=== PATIENT | male | born 1955 | race Caucasian/White ===

== ENCOUNTER 2018-10-09 13:21 | Inpatient (IN) | payer BC, OTHER ==
[2018-10-09] MEDS ORDERED: ONDANSETRON 4 MG/2 ML VIAL IVPB ONE (14:29)
[2018-10-09] MEDS ORDERED: SODIUM CHLORIDE 1,000 ML IV STA (14:30)
[2018-10-09] MEDS ORDERED: morphine CARPU-JECT 4 MG/1 ML DISP.SYRIN IVPUSH ONE (14:31)
--- NOTE | 2018-10-09 14:31 | PDOC ---
History of Present Illness - General Chief Complaint: Pain Stated Complaint: ABD PAIN History Source: Patient Exam Limitations: No Limitations - History of Present Illness Travel History: No Initial Comments: 10/09/18 15:22 This is a 63 year old male with a history of alcohol and substance abuse and sarcoidosis, on advair, who presents with non bloody, green billious vomiting, > 30x since early this morning around 1:30am with accompanied severe, non radiating, sharp mid epigastric pain . Patient states he ate one day old pork and rice. No one else in family ate. Denies fever, chills, diarrhea, dysphagia, night sweats, chest pain, shortness of breath, palpitations, leg swelling. Patient endorses drinking 2-4 ounces of alcohol yesterday. States he drinks 3-4 times per week. Denies drug use/smoking. States he has been "fighting off a cold". PMH: keith, on advair, has not followed up with pulm, has not had breathing difficulty PSHx: none Social: hx of drinking, currently drinks 3-4 x per week; denies current drug use ; is a retired teacher Allergies: nkda Past History - Past Medical History Allergies/Adverse Reactions: Allergies Allergy/AdvReac Type Severity Reaction Status Date / Time No Known Allergies Allergy Verified 10/09/18 13:24 Home Medications: Ambulatory Orders Salmeterol/Fluticasone [Advair 100Mcg/50Mcg -] 1 puff IN BID 10/09/18 COPD: No Other medical history: Sarcoidois - Suicide/Smoking/Psychosocial Hx Smoking History: Never smoked Have you smoked in the past 12 months: No Information on smoking cessation initiated: No Hx Alcohol Use: No Drug/Substance Use Hx: No Substance Use Type: Alcohol Review of Systems - Review of Systems Able to Perform ROS?: Yes Constitutional: Yes: Loss of Appetite. No: Chills, Diaphoresis, Fever, Night Sweats, Weakness, Weight Stable, Unintentional Wgt. Loss HEENTM: No: Nose Congestion, Throat Pain, Throat Swelling, Difficulty Swallowing , Mouth Swelling Respiratory: No: Cough, Orthopnea, Shortness of Breath Cardiac (ROS): No: Chest Pain, Irregular Heart Rate, Lightheadedness, Palpitations, Syncope ABD/GI: Yes: Nausea, Poor Fluid Intake, Vomiting, Abdominal cramping. No: Abdominal Distended, Blood Streaked Bowels, Diarrhea, Difficulty Swallowing : No: Burning, Dysuria, Discharge, Hematuria Musculoskeletal: No: Back Pain Integumentary: No: Bruising, Erythema, Lesions Neurological: No: Headache, Numbness, Seizure, Tingling Endocrine: No: Excessive Sweating Hematologic/Lymphatic: No: Anemia *Physical Exam - Vital Signs Last Vital Signs Temp Pulse Resp BP Pulse Ox 97.3 F L 86 20 111/73 100 10/09/18 13:24 10/09/18 13:24 10/09/18 13:24 10/09/18 13:24 10/09/18 13:24 - Physical Exam General Appearance: Yes: Appropriately Dressed HEENT: positive: Pharynx Normal Neck: negative: Lymphadenopathy (R), Lymphadenopathy (L) Respiratory/Chest: positive: Crackles (mild RLL crakles; cleared with coughing) . negative: Chest Tender, Respiratory Distress, Accessory Muscle Use Cardiovascular: positive: Regular Rhythm, Regular Rate, S1, S2. negative: Bradycardia, Tachycardia Gastrointestinal/Abdominal: positive: Tender (mid epigastium pain with palpation ), Decreased BS. negative: Organomegaly, Pulsatile Mass, Distended, Guarding Musculoskeletal: positive: Normal Inspection. negative: CVA Tenderness Extremity: positive: Normal Inspection, Normal Range of Motion Integumentary: positive: Normal Color Neurologic: positive: Alert, Normal Mood/Affect ED Treatment Course - LABORATORY CBC & Chemistry Diagram: 10/09/18 15:12 10/09/18 15:12 Medical Decision Making - Medical Decision Making 10/09/18 16:01 This is a 63 year old male with a history of sarcoidosis, alchohol use, hx of substance abuse, who presents with intractable billious vomiting x1 day. R/o out acute abdominal/intestinal pathology. #n/v/abdominal pain: -cbc, cmp, mg, lipase, ua -IVF -IV protonix -IV zofran -ecg to eval for acs -abdominal/pelvis CT with IV contrast 10/09/18 17:53 -CT abdomen consistent with small bowel obstruction with moderate gastric fluid levels. -keep NPO -place NGT 10/09/18 18:06 -surgery consulted -admit to hospital *DC/Admit/Observation/Transfer Diagnosis at time of Disposition: Left before treatment completed - Discharge Dispostion Condition at time of disposition: Fair Decision to Admit order: Yes - Referrals - Patient Instructions - Post Discharge Activity
[2018-10-09] MEDS ORDERED: morphine SULFATE 4 MG/ML VIAL ONE (14:47)
[2018-10-09] MEDS ORDERED: ONDANSETRON 4 MG/2 ML VIAL ONE (14:47)
[2018-10-09 15:39] LABS: BASO % 0.3 % (0-2.0); EOS % 0.1 % (0-4.5); HEMATOCRIT 46.7 % (35.4-49); HEMOGLOBIN 15.9 GM/dL (11.7-16.9); LYMPH % 2.3 % (8-40); MEAN CELL VOLUME 85.3 fl (80-96); MEAN PLT VOLUME 10.5 fl (7.5-11.1); MONO % 3.7 % (3.8-10.2); NEUT % 93.6 % (42.8-82.8); PLATELET COUNT 184 K/MM3 (134-434); RBC 5.47 M/mm3 (4.00-5.60); RDW 13.1 % (11.9-15.9); WHITE BLOOD COUNT 11.8 K/mm3 (4.0-10.0)
[2018-10-09] MEDS ORDERED: PANTOPRAZOLE SODIUM 40 MG VIAL IVPUSH ONE (16:00)
[2018-10-09] MEDS ORDERED: PANTOPRAZOLE SODIUM 40 MG/100 ML BAG IVPB ONE (16:15)
[2018-10-09 16:18] LABS: ALBUMIN 4.1 g/dl (3.4-5.0); ALK PHOS 73 U/L (45-117); ANION GAP 12 MMOL/L (8-16); BLOOD UREA NITROGEN 18 mg/dL (7-18); CALCIUM 9.3 mg/dL (8.5-10.1); CHLORIDE 93 mmol/L (98-107); CO2 33 mmol/L (21-32); CREATININE 1.3 mg/dL (0.55-1.3); GLUCOSE,RANDOM 116 mg/dL (74-106); LIPASE 96 U/L (73-393); MAGNESIUM 2.1 mg/dL (1.8-2.4); POTASSIUM 4.1 mmol/L (3.5-5.1); SGOT/AST 29 U/L (15-37); SGPT/ALT 32 U/L (13-61); SODIUM 138 mmol/L (136-145); TOT PROT 7.3 g/dl (6.4-8.2)
--- NOTE | 2018-10-09 16:27 | PDOC ---
Attending Attestation - Resident Resident Name: SonuprernaChrista - ED Attending Attestation I have performed the following: I have examined & evaluated the patient, The case was reviewed & discussed with the resident, I agree w/resident's findings & plan, Exceptions are as noted - HPI HPI: 10/09/18 16:21 This patient is a 63yo M with PMHx of Sarcoidosis (on advair daily) EtOH abuse who presents with 1 day of nausea, green bilious vomiting, and epigastric abdominal pain. Patient states that since 1:30 am this morning he vomited 30 times which he describes as bright green colored and non-bloody. He also reports midepigastric abdominal pain that radiates to RUQ and LUQ. He rates the abdominal pain as 10/10. He states that prior to vomiting last night he ate pork that was 1 day old and some rice. Reports a small non bloody BM this morning, but states he normally has a BM every day. He reports that he drinks alcohol 4 days a week, but his reports that he drinks more than that. He states he normally drinks beer and rum. He denies any fever or chills. Denies headache, cp, sob, focal weakness/numbness, LE edema, urinary symptoms. Denies surgery to the abdomen - Physicial Exam PE: 10/09/18 17:13 GENERAL: Awake, alert, and fully oriented, in no acute distress HEAD: No signs of trauma EYES: PERRLA, EOMI, sclera anicteric, conjunctiva clear ENT:Oropharynx clear without exudates. Dry mucosa NECK: Normal ROM, supple, no lymphadenopathy, JVD, or masses LUNGS: Breath sounds equal, clear to auscultation bilaterally. No wheezes, and no crackles HEART: Regular rate and rhythm, normal S1 and S2, no murmurs, rubs or gallops ABDOMEN: Soft, mild epigastric ttp, normoactive bowel sounds. No guarding, no rebound. +mild distention. No masses. No CVAT EXTREMITIES: Normal range of motion, no edema. No cords, erythema, or tenderness NEUROLOGICAL: Normal speech, cranial nerves intact, 5/5 strength in all 4 extremities, normal sensation to light touch in all 4 extremities, normal gait SKIN: Warm, Dry, normal turgor, no rashes or lesions noted. - Medical Decision Making 10/09/18 16:17 63yo M hx etoh abuse presents to the ED with epigastric abd pain a/w multiple episodes of bilious emesis. Pt had BM today but states less than usual. Passing flatus. DDx is wide and includes SBO vs pancreatitis vs UTI vs colitis vs enteritis vs cholecystitis vs gastritis. Plan: -labs -CTAP -UA -reassess 10/09/18 17:23 Labs wnl CTAP done, read pending Pt stable 10/09/18 18:02 CTAP with SBO surgery will be called pt to be admitted 10/09/18 18:[address] Pagan by Dr. Dykes Waiting call back from admitting team 10/09/18 18:[address] Mccullough by Dr. Dykes Case discussed in detail with admitting physician including history, physical exam and ancillary studies. Admitting physician has assumed care for the patient, will follow all pending diagnostics and will complete the evaluation and treatment. *DC/Admit/Observation/Transfer Diagnosis at time of Disposition: SBO (small bowel obstruction), Vomiting bile, Nausea - Discharge Dispostion Condition at time of disposition: Fair - Referrals - Patient Instructions - Post Discharge Activity - Attestations Physician Attestion: 10/09/18 18:45 I, Dr. Socrates Teague MD, attest that this document has been prepared under my direction and personally reviewed by me in its entirety. I further attest, that it accurately reflects all work, treatment, procedures and medical decision -making performed by me. Heart Score/ECG Review #1 10/09/18 17:17 Twelve-lead EKG was performed and reviewed by me. Normal sinus rhythm, rate 93. Right bundle branch block with left anterior fascicular block.
[2018-10-09] MEDS ORDERED: LIDOCAINE VISCOUS 2% ORAL/TOP 20 ML UNIT-DOSE CUP ONE (18:19)
[2018-10-09 18:55] LABS: PLATELET ESTIMATE ADEQUATE
--- NOTE | 2018-10-09 20:23 | HP ---
Admitting History and Physical - Primary Care Physician PCP: Morris Mccullough - Admission Chief Complaint: vomitting History of Present Illness: 63 year old male with a history of alcohol and substance abuse and sarcoidosis, who presents with non bloody, green billious vomiting, >30x since early this morning around 1:30am with accompanied severe, non radiating, sharp mid epigastric pain . Patient states he ate one day old pork and rice. No one else in family ate. Denies fever, chills, diarrhea, dysphagia, night sweats, chest pain, shortness of breath, palpitations, leg swelling. Patient endorses drinking 2-4 ounces of alcohol yesterday. States he drinks 3-4 times per week. Denies drug use/smoking. - Smoking History Smoking history: Never smoked Have you smoked in the past 12 months: No - Alcohol/Substance Use Hx Alcohol Use: No Home Medications - Allergies Allergies/Adverse Reactions: Allergies Allergy/AdvReac Type Severity Reaction Status Date / Time No Known Allergies Allergy Verified 10/09/18 13:24 - Home Medications Home Medications: Ambulatory Orders Salmeterol/Fluticasone [Advair 100Mcg/50Mcg -] 1 puff IN BID 10/09/18 Physical Examination Vital Signs: Vital Signs Temperature 97.3 F L 10/09/18 13:24 Pulse Rate 86 10/09/18 13:24 Respiratory Rate 20 10/09/18 13:24 Blood Pressure 111/73 10/09/18 13:24 O2 Sat by Pulse Oximetry (%) 100 10/09/18 13:24 HENT: Yes: Atraumatic Neck: Yes: Supple Cardiovascular: Yes: Regular Rate and Rhythm Respiratory: Yes: CTA Bilaterally Gastrointestinal: Yes: Normal Bowel Sounds Extremities: Yes: WNL Edema: No Peripheral Pulses WNL: Yes Neurological: Yes: Alert, Oriented Labs: CBC, BMP 10/09/18 15:12 10/09/18 15:12 Problem List - Problems (1) Nausea Assessment/Plan: prn zofran Code(s): R11.0 - NAUSEA (2) SBO (small bowel obstruction) Assessment/Plan: npo, ngt ivf Code(s): K56.609 - UNSP INTESTNL OBST, UNSP TO PARTIAL VERSUS COMPLETE OBST (3) Vomiting bile Code(s): R11.14 - BILIOUS VOMITING Assessment/Plan Laboratory Tests 10/09/18 10/09/18 15:12 15:12 WBC 11.8 H RBC 5.47 Hgb 15.9 Hct 46.7 MCV 85.3 MCH 29.0 MCHC 34.0 RDW 13.1 Plt Count 184 MPV 10.5 Absolute Neuts (auto) 11.0 H Neutrophils % 93.6 H Neutrophils % (Manual) 89.0 H Band Neutrophils % 5.0 Lymphocytes % 2.3 L Lymphocytes % (Manual) 3.0 L Monocytes % 3.7 L Monocytes % (Manual) 3 L Eosinophils % 0.1 Basophils % 0.3 Nucleated RBC % 0 Platelet Estimate Adequate Platelet Comment No clumping noted Sodium 138 Potassium 4.1 Chloride 93 L Carbon Dioxide 33 H Anion Gap 12 BUN 18 Creatinine 1.3 Creat Clearance w eGFR 55.58 Random Glucose 116 H Calcium 9.3 Magnesium 2.1 Total Bilirubin 1.0 AST 29 ALT 32 Alkaline Phosphatase 73 Total Protein 7.3 Albumin 4.1 Lipase 96 Alcohol, Quantitative < 3.0 Active Medications Generic Name Dose Route Start Last Admin Trade Name Freq PRN Reason Stop Dose Admin Morphine Sulfate 3 mg 10/09/18 20:25 10/11/18 16:41 Morphine Sulfate IVPUSH 3 mg Q4H PRN Administration PAIN LEVEL 4 - 6 Pantoprazole Sodium 40 mg 10/09/18 20:26 10/11/18 11:00 Protonix Iv IVPUSH 40 mg DAILY EDUARDO Administration
[2018-10-09] MEDS: PANTOPRAZOLE SODIUM 40 MG VIAL IVPUSH SCH (20:57)
[2018-10-09 22:52] LABS: COCAINE, UR NEGATIVE ng/ml (CUTOFF=300); METHADONE, UR NEGATIVE ng/ml (CUTOFF=300); PHENCYCLIDINE,URINE NEGATIVE ng/ml (CUTOFF=25); URINE AMPHETAMINES NEGATIVE ng/ml (CUTOFF=500); URINE BARBITURATES NEGATIVE ng/ml (CUTOFF=200); URINE BENZODIAZEPINES NEGATIVE ng/ml (CUTOFF=200)
[2018-10-09 22:53] LABS: OPIATES, URI POSITIVE ng/ml (CUTOFF=300)
[2018-10-09 23:02] LABS: URINE APPEARANCE CLEAR; URINE BILIRUBIN NEGATIVE (<2.0 mg/dL); URINE COLOR YELLOW; URINE GLUCOSE (UA) NEGATIVE (NEGATIVE); URINE KETONE 2+ (NEGATIVE); URINE LEUK ESTERASE NEGATIVE (NEGATIVE); URINE NITRITE NEGATIVE (NEGATIVE); URINE PROTEIN 1+ (NEGATIVE); URINE UROBILINOGEN NEGATIVE mg/dL (0.2-1.0)
[2018-10-09 23:07] LABS: EPI CELLS RARE /HPF (FEW); URINE BACTERIA RARE /hpf (NONE SEEN); URINE MUCUS RARE
[2018-10-09 23:47] VITALS: BMI 22.4
[2018-10-10] MEDS: morphine SULFATE 4 MG/ML VIAL IVPUSH PRN (06:43)
[2018-10-10 08:04] LABS: BASO % 0.2 % (0-2.0); EOS % 0.2 % (0-4.5); HEMATOCRIT 44.8 % (35.4-49); HEMOGLOBIN 14.8 GM/dL (11.7-16.9); MCH 28.5 pg (25.7-33.7); MEAN CELL VOLUME 86.3 fl (80-96); MONO % 7.1 % (3.8-10.2); NEUT % 84.5 % (42.8-82.8); PLATELET COUNT 163 K/MM3 (134-434); RBC 5.19 M/mm3 (4.00-5.60); RDW 13.3 % (11.9-15.9); WHITE BLOOD COUNT 9.5 K/mm3 (4.0-10.0)
[2018-10-10 08:15] LABS: ALBUMIN 3.4 g/dl (3.4-5.0); ALK PHOS 57 U/L (45-117); ANION GAP 8 MMOL/L (8-16); BLOOD UREA NITROGEN 27 mg/dL (7-18); CALCIUM 8.5 mg/dL (8.5-10.1); CHLORIDE 99 mmol/L (98-107); CO2 34 mmol/L (21-32); CREATININE 1.4 mg/dL (0.55-1.3); GLUCOSE,RANDOM 96 mg/dL (74-106); POTASSIUM 3.8 mmol/L (3.5-5.1); SGOT/AST 21 U/L (15-37); SGPT/ALT 23 U/L (13-61); SODIUM 141 mmol/L (136-145)
[2018-10-10] MEDS: PANTOPRAZOLE SODIUM 40 MG VIAL IVPUSH SCH (09:12)
--- NOTE | 2018-10-10 10:55 | PN ---
Progress Note (short form) - Note Progress Note: Surgery pt seen and examined. full consult dictated. 63m with virgin abd, history of pulmonary sarcoid, presents with bilious vomiting after eating spoiled pork while drunk. Ct without oral contrast shows possible mechanical sbo. Ngt with minimal output. Pt without pain and labs now norrmal. afebrile abd- soft, nt Plan- clinically enteritis. Cannot r/o mechanical sbo from sarcoid, malignancy , congenital internal hernia, or isolated adhesion. Pt not interested in exploratory surgery at this time. Will repeat ct with oral contrast since that is standard of care in bowel obstruction. If sbo still suggested and no rapid significant clinical improvement, will move in direction of surgery. Pt is not toxic without evidence of bowel compromise.
--- NOTE | 2018-10-10 11:38 | CONS ---
DATE OF CONSULTATION: 10/10/2018 REASON FOR CONSULTATION: Small bowel obstruction. This is an emergency room consultation at the request of the emergency room physician. The patient was subsequently admitted to the medical floor. He was then seen and evaluated. BRIEF HISTORY: This is a 63-year-old male with a history of isolated pulmonary sarcoid as well as alcohol abuse. He states while drinking heavily he ate some contaminated pork and developed nausea and vomiting. He came to the emergency room where he had a CAT scan of his abdomen and pelvis, which was read by the endocrinologist as a small bowel obstruction. There was dilated proximal small bowel and collapsed distal small bowel with a transition point noted. The patient was admitted with nasogastric tube decompression with minimal output and currently is pain free without nausea. He has had a small amount of flatus without diarrhea. He denies recent weight loss. Denies recent blood in his stool. PAST MEDICAL HISTORY: As in HPI. In addition, he has asthma. SOCIAL HISTORY: Positive for alcohol abuse. ALLERGIES: He has no known drug allergies. MEDICATIONS: Include Advair. PAST SURGICAL HISTORY: Nil. FAMILY HISTORY: Negative for malignancy in the immediate family. REVIEW OF SYSTEMS: General: Denies fatigue or malaise. Cardiac: Denies chest pain or palpitations. Respiratory: Denies shortness of breath or wheeze. Gastrointestinal: As in HPI. Genitourinary: Denies dysuria. Musculoskeletal: Denies joint pain or joint swelling. Psychiatric: Denies anxiety, depression, or hearing voices. PHYSICAL EXAMINATION: General: This is a well-developed, well-nourished 63-year-old male in no distress. Vital Signs: He is currently febrile at 100. His heart rate is 79. His blood pressure is 113/71. His respiratory rate is recorded as 20. HEENT: His head is normocephalic. Sclerae anicteric. Neck: Supple. Chest: Clear. Abdomen: Soft, nontender, nondistended. No surgical scars. There are no obvious hernias. Extremities: No edema. LABORATORIES: On review of his laboratory, his white blood cell count is normal at 9.5. There is an 84% shift. His chemistries are unremarkable with the exception of a mildly elevated BUN 27, creatinine 1.4. His urinalysis is unremarkable. His toxicology screen is positive for opiates. ASSESSMENT: This is a 63-year-old male with abdominal pain, nausea, and vomiting who never had surgery. Also with a history of pulmonary sarcoid who presents with a CAT scan showing possible mechanical small bowel obstruction. After having a nasogastric tube placed, there is minimal output, he is passing gas, and he has no pain. His abdominal exam is essentially benign with now a normal white blood cell count. At this point, clinically the picture is that of enteritis secondary to contaminated pork and rice; however, the CAT scan is impressive. Since the CAT scan did not have oral contrast, I will repeat the CAT scan with oral contrast as that is standard of care in evaluating for small bowel obstruction. I will make further recommendations based on the new CAT scan findings. However, if the CAT scan still suggests a high-grade bowel obstruction and if clinically the patient does not show rapid signs of resolution with significant flatus and diarrhea, we would move in the direction of surgery. 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 At this phase, I will follow the patient with you, although clinically he has no evidence of bowel compromise. DO WHITLEY ESTRELLA/[id number]
--- NOTE | 2018-10-10 11:50 | EKG ---
Test Reason : Blood Pressure : / mmHG Vent. Rate : 093 BPM Atrial Rate : 093 BPM P-R Int : 166 ms QRS Dur : 116 ms QT Int : 382 ms P-R-T Axes : 055 -84 007 degrees QTc Int : 474 ms NORMAL SINUS RHYTHM RIGHT BUNDLE BRANCH BLOCK LEFT ANTERIOR FASCICULAR BLOCK BIFASCICULAR BLOCK ABNORMAL ECG NO PREVIOUS ECGS AVAILABLE Confirmed by ADAMA LOPEZ, PABLO ([id number]) on 10/10/2018 11:50:21 AM Referred By: Confirmed By:PABLO GALAN MD
--- NOTE | 2018-10-10 15:20 | PN ---
Progress Note, Physician - Current Medication List Current Medications: Active Medications Morphine Sulfate (Morphine Sulfate) 3 mg IVPUSH Q4H PRN PRN Reason: PAIN LEVEL 4 - 6 Last Admin: 10/10/18 06:43 Dose: 3 mg Pantoprazole Sodium (Protonix Iv) 40 mg IVPUSH DAILY EDUARDO Last Admin: 10/10/18 09:12 Dose: 40 mg - Objective Vital Signs: Vital Signs Temperature 98.1 F 10/10/18 14:00 Pulse Rate 69 10/10/18 09:00 Respiratory Rate 20 10/10/18 09:00 Blood Pressure 97/50 L 10/10/18 09:00 O2 Sat by Pulse Oximetry (%) 92 L 10/10/18 00:10 Constitutional: Yes: No Distress HENT: Yes: Atraumatic Neck: Yes: Supple Cardiovascular: Yes: Regular Rate and Rhythm Respiratory: Yes: CTA Bilaterally Gastrointestinal: Yes: Normal Bowel Sounds Extremities: Yes: WNL Neurological: Yes: Alert, Oriented Labs: CBC, BMP 10/10/18 06:30 10/10/18 06:30 Problem List - Problems (1) Nausea Assessment/Plan: prn zofran Code(s): R11.0 - NAUSEA (2) SBO (small bowel obstruction) Assessment/Plan: npo, ngt ivf Code(s): K56.609 - UNSP INTESTNL OBST, UNSP TO PARTIAL VERSUS COMPLETE OBST (3) Vomiting bile Code(s): R11.14 - BILIOUS VOMITING
[2018-10-11] MEDS: morphine SULFATE 4 MG/ML VIAL IVPUSH PRN ×2 (04:50→16:41)
[2018-10-11] MEDS: PANTOPRAZOLE SODIUM 40 MG VIAL IVPUSH SCH (11:00)
--- NOTE | 2018-10-11 12:26 | PN ---
Progress Note (short form) - Note Progress Note: surgery repeat ct with oral contrast shows persistent sbo. repeat kub today shows no contrast in the colon and persistent obstruction. ngt with 750 bilious output. pt still without flatus. spoke with extensively and recommend surgical exploration. I am concerned that this will not resolve in the setting of a virgin abdomen. I am concerned of malignancy, sarcoid, and internal hernia. Pt and refuse surgery. they want to wait and see if sbo will resolve with time. they realize that they are likely delaying eventual surgery and diagnosis. there is also the chance of developing bowel compromise while waiting with ultimately a worse outcome. keep npo. cont ngt. will re-eval in 72 hours for improvement. I suspect pt will ultimately require and agree to surgery.
--- NOTE | 2018-10-11 19:09 | PN ---
Progress Note, Physician History of Present Illness: had BM today passing gas - Current Medication List Current Medications: Active Medications Morphine Sulfate (Morphine Sulfate) 3 mg IVPUSH Q4H PRN PRN Reason: PAIN LEVEL 4 - 6 Last Admin: 10/11/18 16:41 Dose: 3 mg Pantoprazole Sodium (Protonix Iv) 40 mg IVPUSH DAILY EDUARDO Last Admin: 10/11/18 11:00 Dose: 40 mg - Objective Vital Signs: Vital Signs Temperature 98.2 F 10/11/18 17:59 Pulse Rate 72 10/11/18 17:59 Respiratory Rate 18 10/11/18 17:59 Blood Pressure 136/79 10/11/18 17:59 O2 Sat by Pulse Oximetry (%) 92 L 10/10/18 00:10 Constitutional: Yes: No Distress HENT: Yes: Atraumatic Neck: Yes: Supple Cardiovascular: Yes: Regular Rate and Rhythm Respiratory: Yes: CTA Bilaterally Gastrointestinal: Yes: Normal Bowel Sounds Extremities: Yes: WNL Edema: No Neurological: Yes: Alert, Oriented Labs: CBC, BMP 10/10/18 06:30 10/10/18 06:30 Problem List - Problems (1) Nausea Assessment/Plan: prn zofran Code(s): R11.0 - NAUSEA (2) SBO (small bowel obstruction) Assessment/Plan: npo, ngt ivf Code(s): K56.609 - UNSP INTESTNL OBST, UNSP TO PARTIAL VERSUS COMPLETE OBST (3) Vomiting bile Code(s): R11.14 - BILIOUS VOMITING
[2018-10-11] MEDS ORDERED: SODIUM CHLORIDE 1,000 ML IV SCH (19:30)
[2018-10-11] MEDS: SODIUM CHLORIDE 1,000 ML IV SCH (19:35)
[2018-10-12] MEDS: PANTOPRAZOLE SODIUM 40 MG VIAL IVPUSH SCH (10:03)
[2018-10-12] MEDS: SODIUM CHLORIDE 1,000 ML IV SCH (11:41)
--- NOTE | 2018-10-13 11:46 | PN ---
Progress Note, Physician History of Present Illness: this note is for 17 i saw patient but forgot to write note - Current Medication List Current Medications: Active Medications Sodium Chloride (Normal Saline -) 1,000 mls @ 75 mls/hr IV ASDIR [facility] Last Admin: 10/12/18 11:41 Dose: 75 mls/hr Morphine Sulfate (Morphine Sulfate) 3 mg IVPUSH Q4H PRN PRN Reason: PAIN LEVEL 4 - 6 Last Admin: 10/11/18 16:41 Dose: 3 mg Pantoprazole Sodium (Protonix Iv) 40 mg IVPUSH DAILY [facility] Last Admin: 10/12/18 10:03 Dose: 40 mg - Objective Vital Signs: Vital Signs Temperature 99.1 F 10/12/18 18:00 Pulse Rate 74 10/12/18 18:00 Respiratory Rate 17 10/12/18 21:00 Blood Pressure 150/88 10/12/18 18:00 O2 Sat by Pulse Oximetry (%) 92 L 10/10/18 00:10 Constitutional: Yes: No Distress HENT: Yes: Atraumatic Neck: Yes: Supple Cardiovascular: Yes: Regular Rate and Rhythm Respiratory: Yes: CTA Bilaterally Extremities: Yes: WNL Neurological: Yes: Alert, Oriented Labs: CBC, BMP 10/10/18 06:30 10/10/18 06:30 Problem List - Problems (1) Nausea Assessment/Plan: prn zofran Code(s): R11.0 - NAUSEA (2) SBO (small bowel obstruction) Assessment/Plan: npo, ngt ivf Code(s): K56.609 - UNSP INTESTNL OBST, UNSP TO PARTIAL VERSUS COMPLETE OBST (3) Vomiting bile Code(s): R11.14 - BILIOUS VOMITING
--- NOTE | 2018-10-13 11:47 | PN ---
Progress Note, Physician History of Present Illness: ngt was dc by gi - Current Medication List Current Medications: Active Medications Sodium Chloride (Normal Saline -) 1,000 mls @ 75 mls/hr IV ASDIR [facility] Last Admin: 10/12/18 11:41 Dose: 75 mls/hr Morphine Sulfate (Morphine Sulfate) 3 mg IVPUSH Q4H PRN PRN Reason: PAIN LEVEL 4 - 6 Last Admin: 10/11/18 16:41 Dose: 3 mg Pantoprazole Sodium (Protonix Iv) 40 mg IVPUSH DAILY [facility] Last Admin: 10/12/18 10:03 Dose: 40 mg - Objective Vital Signs: Vital Signs Temperature 99.1 F 10/12/18 18:00 Pulse Rate 74 10/12/18 18:00 Respiratory Rate 17 10/12/18 21:00 Blood Pressure 150/88 10/12/18 18:00 O2 Sat by Pulse Oximetry (%) 92 L 10/10/18 00:10 Constitutional: Yes: No Distress HENT: Yes: Atraumatic Neck: Yes: Supple Cardiovascular: Yes: Regular Rate and Rhythm Respiratory: Yes: CTA Bilaterally Gastrointestinal: Yes: Normal Bowel Sounds Extremities: Yes: WNL Edema: No Peripheral Pulses WNL: Yes Neurological: Yes: Alert, Oriented Labs: CBC, BMP 10/10/18 06:30 10/10/18 06:30 Problem List - Problems (1) Nausea Assessment/Plan: prn zofran Code(s): R11.0 - NAUSEA (2) SBO (small bowel obstruction) Assessment/Plan: on clear liquid diet Code(s): K56.609 - UNSP INTESTNL OBST, UNSP TO PARTIAL VERSUS COMPLETE OBST (3) Vomiting bile Code(s): R11.14 - BILIOUS VOMITING
--- NOTE | 2018-10-13 13:14 | CON.GI ---
Consult Consult Specialty:: GI Referred by:: Dr Mccullough Reason for Consultation:: small bowel obstruction - History of Present Illness Chief Complaint: abdominal pain, distention History of Present Illness: 63 y.o. M developed sudden abdominal pain and distention in the middle of the night several days ago, leading him to go to ER. Was found to have small bowel obstruction on CT scanning. No history of any previous episodes. No history of abdominal surgery. Takes no medications at home. Denies weight loss or chronic pain. He states he has had 3 BMs over the past 24 hours and now feels much improved. - History Source History Provided By: Patient Limitations to Obtaining History: No Limitations - Alcohol/Substance Use Hx Alcohol Use: No - Smoking History Smoking history: Never smoked Have you smoked in the past 12 months: No Home Medications - Allergies Allergies/Adverse Reactions: Allergies Allergy/AdvReac Type Severity Reaction Status Date / Time No Known Allergies Allergy Verified 10/09/18 13:24 - Home Medications Home Medications: Ambulatory Orders Salmeterol/Fluticasone [Advair 100Mcg/50Mcg -] 1 puff IN BID 10/09/18 Physical Exam-GI Vital Signs: Vital Signs Temperature 98.3 F 10/13/18 09:00 Pulse Rate 73 10/13/18 09:00 Respiratory Rate 20 10/13/18 09:00 Blood Pressure 159/81 10/13/18 09:00 O2 Sat by Pulse Oximetry (%) 92 L 10/10/18 00:10 Eyes: No: WNL, Conjunctiva Clear, EOM Intact, Cataracts, Diplopia, Occular Prosthesis, PERRL, Ptosis, Sclera Icterus, Tearing, Other Gastrointestinal Inspection: No: WNL, Ascites, Distention, Hernia, Scars, Other Labs: CBC, BMP 10/10/18 06:30 10/10/18 06:30 Imaging - Results X-ray: Report Reviewed, Image Reviewed Cat Scan: Report Reviewed, Image Reviewed Problem List - Problems (1) SBO (small bowel obstruction) Code(s): K56.609 - UNSP INTESTNL OBST, UNSP TO PARTIAL VERSUS COMPLETE OBST Assessment/Plan I explained to Mr Monsalve that although he no longer shows signs of intestinal obstruction, in the absence of a history of prior abdominal surgery there is a concern for a small bowel tumor, even though none was obvious on the CT scan. I told him we can try to feed him and if he tolerates a diet we can continue to work this up as an outpatient; if he gets distended again in the hospital, though, I would strongly recommend surgical exploration. Will try him on clear liquids now and advance diet as tolerated. Patient is anxious to be discharged but again if he is discharged I recommend this be followed up as an outpatient with either a CT enterography or small bowel series.
[2018-10-14] MEDS: PANTOPRAZOLE SODIUM 40 MG VIAL IVPUSH SCH (10:52)
[2018-10-14 14:07] VITALS: BP 147/85; PULSE 74; TEMP 98.5
--- NOTE | 2018-10-14 16:02 | DS ---
Physical Examination Vital Signs: Vital Signs Temperature 98.5 F 10/14/18 14:06 Pulse Rate 74 10/14/18 14:06 Respiratory Rate 18 10/14/18 10:00 Blood Pressure 147/85 10/14/18 14:06 O2 Sat by Pulse Oximetry (%) 92 L 10/10/18 00:10 Constitutional: Yes: No Distress HENT: Yes: Atraumatic Neck: Yes: Supple Cardiovascular: Yes: Regular Rate and Rhythm Respiratory: Yes: CTA Bilaterally Gastrointestinal: Yes: Normal Bowel Sounds Extremities: Yes: WNL Neurological: Yes: Alert, Oriented Labs: CBC, BMP 10/10/18 06:30 10/10/18 06:30 Discharge Summary Reason For Visit: SMALL BOWEL OBSTRUCTION Current Active Problems Nausea (Acute) SBO (small bowel obstruction) (Acute) Vomiting bile (Acute) Condition: Fair - Instructions Diet, Activity, Other Instructions: soft diet Referrals: Ryley Marino MD [Staff Physician] - - Home Medications Comprehensive Discharge Medication List: Ambulatory Orders Salmeterol/Fluticasone [Advair 100Mcg/50Mcg -] 1 puff IN BID 10/09/18 diet was advanced by gi pt tolerated the diet dc home follow up gi as out patient
--- NOTE | 2018-10-14 16:05 | PN ---
Progress Note (short form) - Note Progress Note: surgery pt seen and examined at 1:30pm. tolerating diet without pain. plans for discharge abd- soft, nt Plan- resolved sbo. needs gi outpt eval for etiology such as sarcoid or malignancy. will be available.
== END 2018-10-14 16:53 | disposition home or self-care (01) | DRG 390 ==
LOC: JER 13:21 → JERBED 18:08 → J6S 23:09
PROVIDERS: ADMIT Internal Medicine; ATTEND Internal Medicine
DX: K56.609 Unspecified intestinal obstruction, unspecified as to partial versus complete obstruction (principal); D86.9 Sarcoidosis, unspecified; R11.0 Nausea; R11.14 Bilious vomiting; K46.9 Unspecified abdominal hernia without obstruction or gangrene
CPT/HCPCS: 36415; 71045-TC-FY; 74018-TC-FY; 74019-TC-FY; 74176-TC; 74177-TC; 80053; 80307; 81003; 81015; 83690; 83735; 85025; 93005; 93010; 99284-25; J7030